=== PATIENT | female | born 1975 | race Hispanic/Latino ===

== ENCOUNTER 2020-04-27 08:45 | Observation (INO) | payer BC, SELFPAY ==
[2020-04-27 09:24] LABS: #Basophils 0.1 thou/uL (0.0-0.2); #Eosinphils 0.1 thou/uL (0.0-0.7); #Lymphocytes 3.8 thou/uL (1.20-3.40); #Monocytes 0.7 thou/uL (0.11-0.59); %Eosinophils 0.9 % (0.0-10.0); %Lymphocytes 35.8 % (21.0-51.0); %Monocytes 6.2 % (0.0-10.0); %Neutrophils 56.1 % (42.0-75.0); Hemoglobin 14.1 g/dL (12.0-16.0); Mean Corpuscular HGB CONC 33.1 g/dL (32.0-36.0); Mean Corpuscular Hemoglobin 31.8 pg (27.0-31.0); Mean Corpuscular Volume 96.1 fL (78.0-98.0); Mean Platelet Volume 7.2 fL (7.4-10.4); Platelet Count 369 thou/uL (130-400); RBC Distribution Width 12.8 % (11.5-14.5); Red Blood Cell (RBC) Count 4.45 mill/uL (4.20-5.40); White Blood Cell (WBC) Count 10.6 thou/uL (4.8-10.8)
--- NOTE | 2020-04-27 09:26 | CT ---
CT HEAD WITHOUT CONTRAST: INDICATION: Mental status change. COMPARISON: No comparison. FINDINGS: Ventricles have normal size and position. There is no evidence of intracranial mass or hemorrhage. No evidence of edema or infarct. Sinuses and mastoids are clear. IMPRESSION: Unremarkable head CT. POS: AH
[2020-04-27 09:30] LABS: BHCG - Serum Negative (NEGATIVE); Pregs Control Background? CLEAR/WHITE (CLR/WHITE); Pregs Control Bar Appear? YES (CONTROL BAR)
[2020-04-27 09:31] LABS: INR-International Normal Ratio 0.9; Prothrombin Time 12.6 sec (12.0-14.7)
--- NOTE | 2020-04-27 09:35 | RAD ---
XR Chest 1 View Portable HISTORY: Altered mental status FINDINGS: The heart size is normal. The lungs are well expanded without focal areas of consolidation, pneumothorax or pleural effusions. IMPRESSION: No radiographic evidence of acute cardiopulmonary process.
[2020-04-27 09:41] LABS: Acetaminophen Less than 6.0 mcg/mL (10.0-30.0); Alcohol Less than 10 mg/dL (Less than 10); Lipase 24 U/L (8-78); Salicylate Less than 8.0 mg/dL (15.0-30.0)
[2020-04-27 09:49] LABS: Bilirubin Negative (Negative); Blood, Urine Negative (Negative); Clarity Turbid (Clear); Glucose, Urine (Dipstick) Normal (Negative); Ketone, Urine Negative (Negative); Leukocyte 500 Leu/uL (Negative); Nitrite Negative (Negative); Protein, Urine (Dipstick) 20 mg/dL (Neg-Trace); Specific Gravity, Urine 1.021 (1.002-1.036); Urobilinogen Normal mg/dL (Less than 2); WBC/HPF 21-50 HPF (0-3); pH, Urine 5.5 (5.0-9.0)
[2020-04-27 09:53] LABS: Amphetamine Detected (NotDetected); Barbiturates Screen Not Detected (NotDetected); Benzodiazepine Screen Not Detected (NotDetected); Cocaine Metabolite Screen Not Detected (NotDetected); Medtox Control Line Valid? VALID (VALID); Medtox Reader # READER 1; Methadone Not Detected (NotDetected); Methamphetamine Not Detected (NotDetected); Opiate Screen Not Detected (NotDetected); Oxycodone Screen Not Detected (NotDetected); Phencyclidine (PCP) Not Detected (NotDetected); THC/Cannabinoid Screen Not Detected (NotDetected); Tricyclic Screen Detected (NotDetected)
[2020-04-27 10:01] LABS: RBC/HPF 0-3 HPF (0-3)
[2020-04-27 10:02] LABS: Bacteria/HPF 1+ HPF (None Seen); Mucous/LPF 3+ LPF (<2+)
[2020-04-27 10:03] LABS: Trichomonas/HPF Rare HPF (None Seen)
[2020-04-27 10:20] LABS: ALT (SGPT) 9 U/L (8-55); AST (SGOT) 10 U/L (5-34); Albumin 3.9 g/dL (3.5-5.0); Alkaline Phosphatase 107 U/L (40-110); Anion Gap 16 mmol/L (10-20); BUN (Urea Nitrogen) 9 mg/dL (7.0-18.7); Bilirubin, Total 0.3 mg/dL (0.2-1.2); Calc. Creatinine Clearance 0 mL/min (70-130); Calcium 9.1 mg/dL (7.8-10.44); Carbon Dioxide 20 mmol/L (22-29); Chloride 109 mmol/L (98-107); Estimated GFR-MDRD 76; Globulin 2.7 g/dL (2.4-3.5); Glucose 115 mg/dL (70-105); Potassium 3.5 mmol/L (3.5-5.1); Protein, Total 6.6 g/dL (6.0-8.3); Sodium 141 mmol/L (136-145)
[2020-04-27] MEDS ORDERED: Dexamethasone 10 MG/ML VIAL ONE (11:05)
[2020-04-27] MEDS ORDERED: cefTRIAXone\\ROCEPHIN 2 GM VIAL ONE (11:05)
[2020-04-27] MEDS ORDERED: Naloxone HCl 0.4 mg/ml Vial ONE (11:55)
[2020-04-27] MEDS ORDERED: Aspirin Chewable 81 MG TAB ONE (12:56)
[2020-04-27] MEDS ORDERED: metroNIDAZOLE 250 MG TAB ONE (12:56)
[2020-04-27 13:22] LABS: Magnesium 2.1 mg/dL (1.6-2.6); Phosphorus 3.3 mg/dL (2.3-4.7)
[2020-04-27 13:46] LABS: CKMB 1.3 ng/mL (0-6.6)
[2020-04-27] MEDS: Multivitamins, Adult 10 ML, Folic Acid 1 MG, Thiamine HCl 100 MG in Dextrose 5 %-0.45 %... IV SCH (16:03)
[2020-04-27 16:41] VITALS: BMI 27.4
--- NOTE | 2020-04-27 18:53 | HP ---
PRIMARY CARE PHYSICIAN: Unknown. CHIEF COMPLAINT: Altered mental status. HISTORY OF PRESENT ILLNESS: The patient is a 44-year-old female with past medical history significant for ADHD. She presents to the ER today for altered mentation. Her last seen normal was yesterday afternoon. Today, she may have possibly had a syncopal episode at the house, but she is a poor historian of what lead to EMS being called. She is alert and oriented to person, place, and time currently although she missed the date by one day. Upon arrival, she was not alert or oriented. EMS was called due to this possible syncopal episode. She told them that her throat was swelling, so they gave her Benadryl en route. The patient states she has no sick contacts, has not used any illicit drugs, has not used any medications not prescribed to her. She denies any recent illness. There was also some question upon arrival of her smelling of alcohol and she had a pill bottle that had multiple types of medications in it. She says she keeps all of her medications together in one bottle for ease of use, we will verify the types of medications and whether they are all prescribed to her. She and her daughter denies any suicidal ideations. Today, in the ER, they completed lab work, a brain CT, and a chest x-ray and EKG. They also administered 2g of metronidazole, full dose aspirin, naloxone, ceftriaxone, and dexamethasone. PAST MEDICAL HISTORY: ADHD. PAST SURGICAL HISTORY: . ALLERGIES: NO KNOWN DRUG ALLERGIES. MEDICATIONS: The patient states she takes gabapentin and Adderall. SOCIAL HISTORY: The patient lives at home with her dad. 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 She denies any alcohol or drug use. She is a 1-1/2 pack per day smoker for the past 25 years. FAMILY HISTORY: The patient unable to recall. REVIEW OF SYSTEMS: All other review of systems are negative unless noted in the HPI. PHYSICAL EXAMINATION: VITAL SIGNS: Blood pressure 160/94, pulse 76, respiratory rate 18, pain 0, O2 saturation 97% on room air. GENERAL: The patient is alert to verbal stimuli. HEAD: Atraumatic and normocephalic. EYES: Extraocular muscles intact. PERRLA. ENT: Dry mucous membranes. Poor dentition. NECK: Normal range of motion. No tenderness. Trachea midline. RESPIRATORY: Symmetrical chest rise. Clear to auscultation bilaterally. No rhonchi. No wheezes. No rales. CARDIOVASCULAR: Regular rate and rhythm. No murmurs. No rubs. No gallops. ABDOMEN: Bowel sounds normal. No distention. Nontender. EXTREMITIES: Posterior tibial pulse normal. Pedal pulse normal. Normal range of motion. NEURO: Bilateral equal strength in upper and lower extremities. Cranial nerves 2 through 12 intact. Cerebellar normal. She continually missed reaching out to the finger, but was able to adequately touch her nose. No nystagmus. SKIN: Warm, dry, intact. PSYCH: The patient is somnolent between questions. IMAGING STUDIES: Brain CT shows unremarkable head CT. Chest x-ray: No radiographic evidence of acute cardiopulmonary process. EKG: Sinus rhythm, 79 beats per minute with no ectopic beats. LABORATORY DATA: White blood cells 10.6, hemoglobin 14.1, hematocrit 42.7. Sodium 141, potassium 3.5, chloride 109, carbon dioxide 20, glucose 115, TSH 1.9730. Urine, turbid clarity, leukocyte esterase 500, urine white blood cells 21-50, squamous epithelial cells 4 to 6, urine bacteria 1+, hyaline casts 11-20, urine mucus 3+, Trichomonas rare. Toxicology screen positive for tricyclics and amphetamines. IMPRESSION AND PLAN: 1. Altered mental status, unclear etiology, rule out transient ischemic attack. We will consult Neurology and have Stroke Team ordered. Monitor on telemetry overnight and complete neuro checks every 4 hours. We will have fasting lipids drawn in the morning. She will be started on aspirin which she received in the ER. Possible [employer] screening once medically cleared. 2. Urinary tract infection. The patient will continue her antibiotics and monitor vital signs. 3. Anxiety. We will continue the patient on her home medications and monitor for any signs of anxiety. 4. Attention deficit hyperactivity disorder, on Adderall. 5. Tobacco abuse. We will monitor the patient for signs of withdrawal and can prescribe a nicotine patch if necessary. 6. Gastrointestinal prophylaxis with Pepcid. 7. Deep vein thrombosis prophylaxis with SCDs. The patient wishes to be a full code. Her designated power of evp is her daughter, Cathleen. The patient has been discussed with Dr. Caro. Job ID: [id number] [facility]
[2020-04-27] MEDS ORDERED: Multivit, Therapeutic 1 TAB PO SCH (21:00)
[2020-04-27] MEDS ORDERED: Atorvastatin Calcium 40 MG TAB PO SCH (21:00)
[2020-04-27] MEDS ORDERED: Cyanocobalamin (Vitamin B-12) 1,000 MCG TAB PO SCH (21:00)
[2020-04-27] MEDS: Famotidine 20 MG TAB PO SCH (21:12)
[2020-04-27] MEDS: Folic Acid 1 MG TAB PO SCH (21:12)
[2020-04-27] MEDS: Acetaminophen 325 MG TAB PO PRN (21:32)
[2020-04-27] MEDS: Sodium Chloride 0.9% 1,000 ML IV SCH (23:45)
[2020-04-28 05:20] LABS: Hemoglobin 13.8 g/dL (12.0-16.0); Mean Corpuscular HGB CONC 33.5 g/dL (32.0-36.0); Mean Corpuscular Hemoglobin 32.5 pg (27.0-31.0); Mean Platelet Volume 7.2 fL (7.4-10.4); Platelet Count 376 thou/uL (130-400); RBC Distribution Width 12.8 % (11.5-14.5); Red Blood Cell (RBC) Count 4.23 mill/uL (4.20-5.40); White Blood Cell (WBC) Count 17.8 thou/uL (4.8-10.8)
[2020-04-28 05:21] LABS: Band 1 % (5-11); Lymphocytes 10 % (21-51); MDiff Complete? YES; Monocytes 8 % (0-10); Neutrophil 81 % (42-75); Platelet Morphology Comment Appears Adequate; RBC Morphology Normal
[2020-04-28] MEDS: Artificial Tear Sol 15 ML BOT EA EYE PRN ×2 (05:22→16:14)
[2020-04-28 05:26] LABS: Anion Gap 10 mmol/L (10-20); BUN (Urea Nitrogen) 7 mg/dL (7.0-18.7); Calc. Creatinine Clearance 128 mL/min (70-130); Calcium 9.1 mg/dL (7.8-10.44); Carbon Dioxide 22 mmol/L (22-29); Cardiac Risk 4.3 (Less than 4.5); Chloride 112 mmol/L (98-107); Cholesterol 163 mg/dl (< 200 Desired); Estimated GFR-MDRD Greater than 90; Glucose 106 mg/dL (70-105); HDL Cholesterol 38 mg/dL (>60 Neg Risk); LDL Cholesterol, Calculated 110 mg/dL; Sodium 140 mmol/L (136-145); Triglycerides 75 mg/dL (Less than 150)
[2020-04-28 05:27] LABS: Troponin I 0.012 ng/mL (< 0.028)
--- NOTE | 2020-04-28 05:41 | CON ---
NEUROLOGY CONSULTATION DATE OF CONSULTATION: 04/27/2020 REASON FOR CONSULTATION: Transient ischemic attack/speech deficits. HISTORY OF PRESENT ILLNESS: A 44-year-old female with medical history significant for anxiety, ADHD, nicotine abuse, presented to the emergency room with altered mental status. The patient is a poor historian. According to her, she was not feeling right and unable to speak properly. She has difficulty getting words out. She denies any focal weakness, focal paresthesias, nausea, vomiting, headache, chest pain, abdominal pain, vertigo, loss of vision, blurred vision, or loss of consciousness associated with the episode. She continues to have slurred speech , difficulty getting words outso she informed her daughter and decided to come to the emergency room for further evaluation. REVIEW OF SYSTEMS: All 10 systems were reviewed and were negative except the pertinent positive and negative mentioned in the HPI. PAST MEDICAL HISTORY: ADHD, anxiety, nicotine abuse. PAST SURGICAL HISTORY: . SOCIAL HISTORY: The patient denies alcohol or illegal drug abuse. She smokes 1.5 packs per day. FAMILY HISTORY: No significant family history. ALLERGIES: NO KNOWN DRUG ALLERGIES. MEDICATIONS: Gabapentin Adderall ALLERGIES: NKDA PHYSICAL EXAMINATION: VITAL SIGNS: Blood pressure 147/100, pulse 80, respiratory rate 18. CVS: Regular rate and rhythm. CHEST: Clear. ABDOMEN: Soft. NECK: No carotid bruit. NEUROLOGIC: Mental status; the patient is alert and oriented to person, place, and time. Speech is slurred. Recent and remote memory, intact. Fund of knowledge seems appropriate. Motor, muscle tone and bulk are normal. Strength 5/5 bilaterally. Sensory intact. Cerebellar intact. Gait deferred due to patient' s safety reasons. DATA REVIEWED: I reviewed the CT scan, which did not reveal any acute intracranial pathology. Chest x-ray was negative for acute cardiopulmonary process. EKG showed normal sinus rhythm. ASSESSMENT AND PLAN: . Ms. Shirlene Bermudez is consulted for slurred speech and mild aphasia, but she has no other focal deficits. Differential diagnosis includes transient ischemic attack versus altered mental status in the setting of UTI. I recommend MRI of the brain to rule out acute intracranial pathology. 2D echo to evaluate for left ventricular ejection fraction. She also needs carotid Dopplers, telemetry, neuro checks every 4 hours. Recommend aspirin and high-intensity statin for secondary stroke prevention. Check hemoglobin A1c, fasting lipid panel, TSH, vitamin B12, and folic acid. EEG to rule out underlying seizure activity because of intermittent episodes of confusion witnessed by the family members and neuro checks every 4 hours. Permissive blood pressure control at this time. Strict control of blood glucose. DVT prophylaxis. Continue PT/OT/Speech. We will continue to follow. Thank you for the consult. Job ID: [id number] MTDD
[2020-04-28] MEDS ORDERED: Aspirin 81 mg Enteric Coated Tablet PO SCH (09:00)
[2020-04-28] MEDS: Folic Acid 1 MG TAB PO SCH (09:57)
[2020-04-28] MEDS: Famotidine 20 MG TAB PO SCH (09:57)
[2020-04-28] MEDS: Sodium Chloride 0.9% 1,000 ML IV SCH (09:57)
[2020-04-28] MEDS ORDERED: cefTRIAXone\\ROCEPHIN 2 GM in Sodium Chloride 0.9% 100 ML IVPB SCH (11:00)
--- NOTE | 2020-04-28 11:54 | ULT ---
BILATERAL CAROTID DUPLEX ULTRASOUND: HISTORY: Syncope TECHNIQUE: Grayscale, color-flow and spectral Doppler ultrasound imaging of the extracranial carotid artery syst ems was performed bilaterally. FINDINGS: There is plaque formation on the right. The peak systolic velocity in the right ICA measures 67 cm/s with an end-diastolic velocity of 20 cm/ s and a systolic ratio of 0.75. The peak systolic velocity in the left ICA measures 61 cm/s with an end-diastolic velocity of 24 cm/s and a systolic ratio of 0.74. Flow in both vertebral arteries remains antegrade. IMPRESSION: No evidence of hemodynamically significant stenosis in either ICA.
[2020-04-28] MEDS ORDERED: Nicotine 14 MG PATCH TD SCH (12:00)
--- NOTE | 2020-04-28 12:24 | EEG ---
DATE OF SERVICE: 04/28/2020 ATTENDING PHYSICIAN: Alva Roca MD This EEG was performed using 24-channel Tissue Regenixtek video digital EEG machine with 24 disk electrodes. This was an extended 2 hour 5 minutes of inpatient video EEG recording. Digital analysis of the EEG was done for spike and seizure detection which revealed no abnormalities. BACKGROUND: The posterior background rhythm is 9 to 10 hertz. The background rhythm attenuates with eye opening and enhances with eye closure. HYPERVENTILATION: No significant response seen with hyperventilation. PHOTIC STIMULATION: Bioccipital symmetric driving responses observed. SLEEP: Drowsiness is observed. EEG DIAGNOSIS: Normal awake and drowsy EEG. Job ID: [id number]
--- NOTE | 2020-04-28 12:30 | PDOC.HOSPP ---
- Subjective Encounter Date: 04/28/20 Subjective: Neurology Progress note Patient feels better. No issue overnight. EEG normal. MRI brain pending. - Objective Vital Signs & Weight: Vital Signs (12 hours) Temp Pulse Resp BP Pulse Ox 04/28/20 12:00 98.5 F 61 18 146/94 H 98 04/28/20 07:47 98.1 F 70 18 127/79 97 04/28/20 04:00 98.2 F 61 18 116/69 95 Weight Weight 170 lb 3 oz Result Diagrams: 04/28/20 04:50 04/28/20 04:50 Hospitalist ROS - Review of Systems Constitutional: denies: fever, chills, sweats, weakness, malaise, other Eyes: denies: pain, vision change, conjunctivae inflammation, eyelid inflammation, redness, other ENT: denies: ear pain, ear discharge, nose pain, nose discharge, nose congestion , mouth pain, mouth swelling, throat pain, throat swelling, other Respiratory: denies: cough, dry, shortness of breath, hemoptysis, SOB with excertion, pleuritic pain, sputum, wheezing, other Cardiovascular: denies: chest pain, palpitations, orthopnea, paroxysmal noc. dyspnea, edema, light headedness, other Gastrointestinal: denies: nausea, vomiting, abdominal pain, diarrhea, constipation, melena, hematochezia, other Genitourinary: denies: dysuria, frequency, incontinence, hematuria, retention, other Musculoskeletal: denies: neck pain, shoulder pain, arm pain, back pain, hand pain, leg pain, foot pain, other Skin: denies: rash, lesions, elvis, bruising, other Neurological: reports: change in speech, confusion. denies: weakness, numbness , incoordination, seizures, other - Medication Medications: Active Medications Generic Name Dose Route Start Last Admin Trade Name Freq PRN Reason Stop Dose Admin Acetaminophen 650 mg 04/27/20 14:34 04/27/20 21:32 Tylenol PO 650 mg Q4H PRN Administration Headache/Fever/Mild Pain (1-3) Artificial Tears 1 drop 04/28/20 05:11 04/28/20 05:22 Liquitears 15ml Bottle EA EYE 1 drop TID PRN Administration Dry Eyes Aspirin 81 mg 04/28/20 09:00 04/28/20 09:57 Ecotrin PO 81 mg DAILY MASOUD Administration Atorvastatin Calcium 40 mg 04/27/20 21:00 04/27/20 21:12 Lipitor PO 40 mg HS MASOUD Administration Cyanocobalamin 1,000 mcg 04/27/20 21:00 04/27/20 21:12 Vitamin B-12 PO 1,000 mcg HS MASOUD Administration Famotidine 20 mg 04/27/20 21:00 04/28/20 09:57 Pepcid PO 20 mg BID MASOUD Administration Folic Acid 1 mg 04/27/20 21:00 04/28/20 09:57 Folvite PO 1 mg BID MASOUD Administration Multivitamins 10 ml/ Folic 1,011.2 mls @ 150 mls/hr 04/27/20 14:00 04/27/20 16:03 Acid 1 mg/ Thiamine HCl 100 mg IV 1,011.2 mls / Dextrose/Sodium Chloride Q24HR MASOUD Administration Sodium Chloride 1,000 mls @ 100 mls/hr 04/27/20 14:45 04/28/20 09:57 Normal Saline 0.9% IV 1,000 mls .Q10H MASOUD Administration Ceftriaxone Sodium 2 gm/ 100 mls @ 200 mls/hr 04/28/20 11:00 04/28/20 12:25 Sodium Chloride IVPB 100 mls 1100 MASOUD Administration Multivitamins 1 tab 04/27/20 21:00 04/27/20 21:12 Theragran PO 1 tab HS MASOUD Administration - Exam General Appearance: awake alert Eye: PERRL ENT: normocephalic atraumatic Neck: supple Heart: RRR Respiratory: CTAB Gastrointestinal: soft Extremities: no cyanosis Skin: normal turgor Neurological: cranial nerve grossly intact, normal sensation to touch, no weakness, no focal deficits, no new deficit, speech deficit Musculoskeletal: normal tone, normal strength, no muscle wasting Psychiatric: normal affect, normal behavior, A&O x 3, oriented to person, oriented to place, oriented to time Hosp A/P (1) AMS (altered mental status) Code(s): R41.82 - ALTERED MENTAL STATUS, UNSPECIFIED Status: Acute (2) TIA (transient ischemic attack) Code(s): G45.9 - TRANSIENT CEREBRAL ISCHEMIC ATTACK, UNSPECIFIED Status: Acute (3) ADHD Status: Acute - Plan PT/OT, speech therapy 44 year old presented with mild confusion with speech deficits. Concern for TIA. MRI brain and 2D echo pending. EEG reviewed and was normal. Carotid dopplers did not reveal significant stenosis. Neurochecks every 4 hours. Check FLP, HbA1C and TSH. Telemetry. Recommend aspirin and high intensity statin for secondary stroke prevention. PT/OT/Speech. Continue home medications. Continue medical management per primary team. Plan discussed during MDR rounds.
--- NOTE | 2020-04-28 13:53 | MRI ---
MRI BRAIN WITHOUT CONTRAST: HISTORY: Dysarthria, TIA CORRELATION: CT scan from 04/27/2020. FINDINGS: No restricted diffusion is seen. The ventricular size is appropriate and the basilar cisterns are pat ent. No evidence of acute infarct, hemorrhage, midline shift or abnormal extra-axial fluid collections is seen. The visualized paranasal sinuses and mastoid air cells are well-aerated. IMPRESSION: No evidence of acute intracranial process.
[2020-04-28 15:50] VITALS: BP 136/75; TEMP 98.4
[2020-04-28] MEDS: Multivitamins, Adult 10 ML, Folic Acid 1 MG, Thiamine HCl 100 MG in Dextrose 5 %-0.45 %... IV SCH (16:14)
[2020-04-28] MEDS: Acetaminophen 325 MG TAB PO PRN (16:14)
--- NOTE | 2020-04-29 01:50 | DIS ---
DATE OF ADMISSION: 04/27/2020 DATE OF DISCHARGE: 04/28/2020 DISCHARGE DIAGNOSES: 1. Shortness of breath, possibly secondary to panic attack. 2. Elevated troponin. 3. Folate deficiency. 4. Mild urinary tract infection. CONSULTATIONS: Neurology with Dr. Alva Roca. PROCEDURES PERFORMED: EEG. BRIEF HISTORY OF PRESENT ILLNESS: This is a 44-year-old female, with a past medical history of ADD, who presented to the emergency room with shortness of breath and difficulty swallowing. Patient stated that she had an acute episode of trouble breathing shortly after she ate. She stated subsequently afterwards she was able to speak and had trouble swallowing. She thought that her throat was swollen, so she was given Benadryl en route. She called EMS, who stated that she did not have any trouble breathing. Patient states that she takes Adderall and she combines multiple medicines in the same bottle. She states that her gabapentin was recently increased to 300 mg daily and since then, she has noted more arthritic pains in her hands and more tingling in her hands and her legs. She denied any rashes. She denied chest pain, palpitations, weakness or numbness in her arms or legs. She was admitted for possible syncope. HOSPITAL COURSE: Dysarthria/shortness of breath: Possibly secondary to panic attack. The patient had a CT scan of her head, which was unremarkable. She had carotid Dopplers which showed no significant stenosis. She had an MRI of her brain, which showed no evidence of a stroke. She had a normal chest x-ray. Patient also had an echocardiogram done, which was normal. She also had an EEG done, which showed no evidence of seizure activity. She was discharged and advised to follow up with her PCP. Tobacco abuse: The patient was discharged with a nicotine patch. Possible UTI: Patient had a turbid urine with urine culture showing E coli with 50 to 75,000 CFU. Her white blood cell count had increased to 17.8. Therefore, she was decided to be treated empirically. She will take cefdinir for an additional one day to complete a 3-day course of antibiotics. Folate deficiency: Patient was noted to have a low folate level of 4.50. She was discharged with folic acid supplements. Elevated troponin: Patient had an elevated troponin of 0.043. She had no chest pain. Her echo was normal. Her lipid panel was normal. DISCHARGE PHYSICAL EXAMINATION: VITAL SIGNS: Temperature 98.4, heart rate 70, respiratory rate 15, O2 saturation 98% on room air, and blood pressure 136/75. GENERAL: Patient is alert, awake, and oriented x3. She has slightly pressured speech. CVS: Regular rate and rhythm with no murmurs, rubs, or gallops. LUNGS: Clear to auscultation bilaterally. ABDOMEN: Positive bowel sounds, soft, nontender, and nondistended. EXTREMITIES: No edema. NEURO: Cranial nerves 2 through 12 are intact. She has 5/5 strength in her upper and lower extremities. She has intact sensation in all 4 extremities. She has no evidence of clonus. She has 2+ reflexes in her knees. She has a negative Babinski sign. PERTINENT LABORATORY DATA: CBC 04/28: White count 17.8. Rest of CBC is unremarkable. BMP 04/28: Normal. LFTs 04/27: Normal. Troponin I: 0.021, up to 0.043. CK-MB is 1.3. Folate: 4.5. Vitamin B12: 323. TSH: 1.9. Lipid panel: Cholesterol 165, triglycerides 75, LDL 110, and HDL 38. UA 04/27: Shows turbid urine, 500 leukocyte esterase, 21 to 50 white blood cells , and 1+ bacteria. U-tox: Positive for amphetamines. C3: normal IMAGING: Chest x-ray 04/27: No acute disease. CT brain 04/27: Normal. MRI brain 04/28: Normal. Carotid Doppler 04/28: Normal. Echo 04/28: EF 55% to 60%. Mild MR. Aortic valve sclerosis. Mild TR. DISCHARGE CONDITION: Stable. ACTIVITY: As tolerated. DIET: Heart-healthy diet. DISCHARGE MEDICATIONS: 1. Cefdinir 300 mg p.o. q.12. 2. Nicotine 14 mg TD q.24. 3. Folic acid 1 mg p.o. daily. 4. Venlafaxine 25 mg p.o. daily. 5. Ibuprofen 600 mg p.o. daily. 6. Gabapentin 300 mg p.o. daily. 7. Amphetamine 20 mg p.o. t.i.d. DISCHARGE INSTRUCTIONS: Patient is to follow up with her PCP in a week. Consider treatment for panic attacks. Job ID: [id number] MTDD
== END 2020-04-28 17:20 | disposition home or self-care (01) ==
LOC: ERS 08:45 → ERHOLD 12:37 → 2SE 16:13
PROVIDERS: ADMIT Internal Medicine; ATTEND Internal Medicine
DX: R41.82 Altered mental status, unspecified (principal); R47.81 Slurred speech; R47.01 Aphasia; R06.02 Shortness of breath; R79.89 Other specified abnormal findings of blood chemistry; E53.8 Deficiency of other specified B group vitamins; N39.0 Urinary tract infection, site not specified; F41.9 Anxiety disorder, unspecified; F90.9 Attention-deficit hyperactivity disorder, unspecified type; F17.210 Nicotine dependence, cigarettes, uncomplicated; Z79.899 Other long term (current) drug therapy
CPT/HCPCS: 36415; 51701; 70450; 70551; 71045; 80048; 80053; 80061; 80306; 80307; 81003; 81015; 82553; 82607; 82746; 83690; 83735; 84100; 84443; 84484; 84703; 85025; 85610; 85730; 86160; 87077; 87086; 87186; 93005; 93306; 93880; 94760; 95712; 95816; 95819; 95957; 96361; 96365; 96375; 96376; G0378; J0696; J1100; J2310; J3411; J3490; J7042

== ENCOUNTER 2020-06-16 14:43 | Emergency (ER) | payer BC | END 2020-06-16 15:35 | disposition home or self-care (01) | LOC: ERS 14:43 | DX: K04.7 Periapical abscess without sinus (principal); K02.9 Dental caries, unspecified; F41.9 Anxiety disorder, unspecified; F90.9 Attention-deficit hyperactivity disorder, unspecified type; F17.210 Nicotine dependence, cigarettes, uncomplicated; Z79.899 Other long term (current) drug therapy | CPT/HCPCS: 99283 ==